=== PATIENT | female | born 1970 | race American Indian/Alaskan Native ===

== ENCOUNTER 2016-12-23 10:02 | Emergency (ER) | payer OTHER ==
[2016-12-23 10:34] VITALS: BP 146/86
--- NOTE | 2016-12-23 12:52 | Emergency Department Report ---
ED N/V/D HPI - General Chief complaint: Upper Respiratory Infection Stated complaint: HEADACHE/COUGH Time Seen by Provider: 12/23/16 12:47 Source: patient Mode of arrival: Ambulatory Limitations: No Limitations - History of Present Illness Initial comments: Patient here reports cough, chills, headache, nausea and vomiting and diarrhea, body aches and sore throat. She said that nausea vomiting and diarrhea started this yesterday and she vomited 20 times yesterday. She reports she had one diarrhea stool today. No Vomiting today. Headache is 3 out of 10. She reports nasal congestion. She also reports that she's been having body ache and sore throat which is 4 out of 10. Denies any difficulty breathing or chest pain. Denies any drooling or close enough throat. Denies any abdominal pain. Denies any back pain. She said she felt like she had a temperature but she did not actually take her temperature. She reported taking [id number]-[id number] guaifenesin without any relief. MD complaint: nausea, vomiting, diarrhea, other (upper respiratory symptoms) Onset/Timin -: days(s) Description of Vomiting: bilious Description of Diarrhea: water Associated Abdominal Pain: No Pain Scale: 3 (sore throat and body ache) Quality: aching Improves with: medication Worsens with: eating Context: sick contacts Associated Symptoms: myalgias, cough, fever/chills, headaches, loss of appetite , nausea/vomiting. denies: chest pain, diaphoresis, malaise, rash, dysuria, shortness of breath, syncope, weakness - Related Data Previous Rx's Medication Instructions Recorded Last Taken Type Carvedilol [Coreg] 12.5 mg PO BID #60 tablet 07/21/15 Unknown Rx HYDROcodone/APAP 10-325 [[place] 1 each PO Q4H PRN #30 tablet 07/21/15 Unknown Rx 10-325 mg TAB] Lisinopril [Zestril TAB] 20 mg PO QDAY #30 tablet 07/21/15 Unknown Rx amLODIPine [Norvasc] 10 mg PO QDAY #30 tablet 07/21/15 Unknown Rx metFORMIN [Glucophage] 500 mg PO BIDDIAB #60 tablet 07/21/15 Unknown Rx Acetaminophen/Codeine [Tylenol #3] 1 tab PO Q6H PRN #20 tab 11/06/15 Unknown Rx Ibuprofen [Motrin 600 MG tab] 600 mg PO Q8H PRN #30 tablet 08/10/15 Unknown Rx Penicillin Vk [Veetids TAB] 500 mg PO QID #28 tablet 08/10/15 Unknown Rx Cetirizine HCl [ZyrTEC] 10 mg PO QDAY #14 capsule 12/23/16 Unknown Rx Fluticasone [Flonase] 1 spray NS QDAY #1 bottle 12/23/16 Unknown Rx Nitrofurantoin Stone/M-Cryst 100 mg PO Q12HR #14 capsule 12/23/16 Unknown Rx [Macrobid CAP] Promethazine [Phenergan TAB] 25 mg PO Q8HR PRN #12 tab 12/23/16 Unknown Rx Allergies Allergy/AdvReac Type Severity Reaction Status Date / Time No Known Allergies Allergy Verified 07/20/15 00:26 ED Review of Systems ROS: Stated complaint: HEADACHE/COUGH Other details as noted in HPI Comment: All other systems reviewed and negative Constitutional: chills, weakness. denies: fever Eyes: denies: eye pain ENT: throat pain, congestion. denies: ear pain Respiratory: cough. denies: shortness of breath, SOB with exertion, SOB at rest , stridor, wheezing Cardiovascular: denies: chest pain, palpitations, edema, syncope Gastrointestinal: nausea, vomiting, diarrhea. denies: abdominal pain, constipation, hematemesis, melena, hematochezia Musculoskeletal: myalgia. denies: back pain, joint swelling, arthralgia Skin: denies: rash Neurological: headache, weakness. denies: numbness, paresthesias, confusion, abnormal gait, vertigo ED Past Medical Hx - Past Medical History Previous Medical History?: Yes Hx Hypertension: Yes Hx Diabetes: Yes - Surgical History Past Surgical History?: Yes Additional Surgical History: breast reduction - Family History Family history: hypertension - Social History Smoking Status: Current Every Day Smoker Substance Use Type: None - Medications Home Medications: Home Medications Medication Instructions Recorded Confirmed Last Taken Type Carvedilol [Coreg] 12.5 mg PO BID #60 tablet 07/21/15 Unknown Rx HYDROcodone/APAP 10-325 [[place] 1 each PO Q4H PRN #30 tablet 07/21/15 Unknown Rx 10-325 mg TAB] Lisinopril [Zestril TAB] 20 mg PO QDAY #30 tablet 07/21/15 Unknown Rx amLODIPine [Norvasc] 10 mg PO QDAY #30 tablet 07/21/15 Unknown Rx metFORMIN [Glucophage] 500 mg PO BIDDIAB #60 tablet 07/21/15 Unknown Rx Acetaminophen/Codeine [Tylenol #3] 1 tab PO Q6H PRN #20 tab 08/10/15 Unknown Rx Ibuprofen [Motrin 600 MG tab] 600 mg PO Q8H PRN #30 tablet 08/10/15 Unknown Rx Penicillin Vk [Veetids TAB] 500 mg PO QID #28 tablet 08/10/15 Unknown Rx Cetirizine HCl [ZyrTEC] 10 mg PO QDAY #14 capsule 12/23/16 Unknown Rx Fluticasone [Flonase] 1 spray NS QDAY #1 bottle 12/23/16 Unknown Rx Nitrofurantoin Stone/M-Cryst 100 mg PO Q12HR #14 capsule 12/23/16 Unknown Rx [Macrobid CAP] Promethazine [Phenergan TAB] 25 mg PO Q8HR PRN #12 tab 12/23/16 Unknown Rx ED Physical Exam - General Limitations: No Limitations General appearance: alert, in no apparent distress - Head Head exam: Present: atraumatic, normocephalic, normal inspection - Eye Eye exam: Present: normal appearance, PERRL, EOMI. Absent: periorbital swelling , periorbital tenderness Pupils: Present: normal accommodation - ENT ENT exam: Present: normal exam, normal orophraynx, mucous membranes moist, TM's normal bilaterally (Frantz TM congested without erythema.), normal external ear exam, other (Frantz nasal mucos congesta without erythema. Frantz Max and Frontal sinuses NTTP) - Neck Neck exam: Present: normal inspection, full ROM. Absent: tenderness, meningismus, lymphadenopathy - Respiratory Respiratory exam: Present: normal lung sounds bilaterally. Absent: respiratory distress, wheezes, rales, rhonchi, stridor, chest wall tenderness, accessory muscle use, decreased breath sounds, prolonged expiratory - Cardiovascular Cardiovascular Exam: Present: regular rate, normal rhythm, normal heart sounds - GI/Abdominal GI/Abdominal exam: Present: soft, normal bowel sounds. Absent: distended, tenderness, guarding, rebound, rigid - Extremities Exam Extremities exam: Present: normal inspection, full ROM, normal capillary refill. Absent: tenderness, pedal edema, joint swelling, calf tenderness - Back Exam Back exam: Present: normal inspection, full ROM. Absent: tenderness, CVA tenderness (R), CVA tenderness (L), muscle spasm, paraspinal tenderness, vertebral tenderness, rash noted - Neurological Exam Neurological exam: Present: alert, oriented X3, normal gait, reflexes normal. Absent: motor sensory deficit - Psychiatric Psychiatric exam: Present: normal affect, normal mood - Skin Skin exam: Present: warm, dry, intact, normal color. Absent: rash ED Course Vital Signs 12/23/16 10:30 Temperature 98.3 F Pulse Rate 92 H Respiratory 20 Rate Blood Pressure 146/86 O2 Sat by Pulse 100 Oximetry - Reevaluation(s) Reevaluation #1: 12/23/16 14:49 Patient was orally challenged in emergency room and tolerated 1 L of apple juice which is 4 250 cc cups of apple juice. She has no episode of vomiting or diarrhea in emergency room. She was given Zofran 8 mg ODT. ED Medical Decision Making - Lab Data Result diagrams: 12/23/16 13:06 12/23/16 13:06 Lab Results 12/23/16 12/23/16 12/23/16 Range/Units 12:55 13:06 13:06 WBC 4.2 L (4.5-11.0) K/mm3 RBC 4.70 (3.65-5.03) M/mm3 Hgb 11.6 (10.1-14.3) gm/dl Hct 36.5 (30.3-42.9) % MCV 78 L (79-97) fl MCH 25 L (28-32) pg MCHC 32 (30-34) % RDW 19.1 H (13.2-15.2) % Plt Count 215 (140-440) K/mm3 Lymph % (Auto) 45.5 H (13.4-35.0) % Stone % (Auto) 10.1 H (0.0-7.3) % Eos % (Auto) 1.0 (0.0-4.3) % Baso % (Auto) 0.5 (0.0-1.8) % Lymph # 1.9 (1.2-5.4) K/mm3 Stone # 0.4 (0.0-0.8) K/mm3 Eos # 0.0 (0.0-0.4) K/mm3 Baso # 0.0 (0.0-0.1) K/mm3 Seg Neutrophils % 42.9 (40.0-70.0) % Seg Neutrophils # 1.8 (1.8-7.7) K/mm3 Sodium 135 L (137-145) mmol/L Potassium 3.9 (3.6-5.0) mmol/L Chloride 96.2 L (98-107) mmol/L Carbon Dioxide 27 (22-30) mmol/L Anion Gap 16 mmol/L BUN 13 (7-17) mg/dL Creatinine 0.9 (0.7-1.2) mg/dL Estimated GFR > 60 ml/min BUN/Creatinine Ratio 14.44 % Glucose 120 H (65-100) mg/dL Calcium 8.9 (8.4-10.2) mg/dL Total Bilirubin 0.2 (0.1-1.2) mg/dL Direct Bilirubin < 0.2 (0-0.2) mg/dL Indirect Bilirubin 0.0 mg/dL AST 23 (5-40) units/L ALT 18 (7-56) units/L Alkaline Phosphatase 74 (35-129) units/L Total Protein 8.5 H (6.3-8.2) g/dL Albumin 4.0 (3.9-5) g/dL Albumin/Globulin Ratio 0.9 % Lipase 26 (13-60) units/L HCG, Qual (Negative) Urine Color [place] (Yellow) Urine Turbidity Cloudy (Clear) Urine pH 5.0 (5.0-7.0) Ur Specific [place] 1.030 (1.003-1.030) Urine Protein 30 mg/dl (Negative) mg/dL Urine Glucose (UA) Neg (Negative) mg/dL Urine Ketones Tr (Negative) mg/dL Urine Blood Neg (Negative) Urine Nitrite Neg (Negative) Urine Bilirubin Neg (Negative) Urine Urobilinogen < 2.0 (<2.0) mg/dL Ur Leukocyte Esterase Lg (Negative) Urine WBC (Auto) 10.0 H (0.0-6.0) /HPF Urine RBC (Auto) 10.0 (0.0-6.0) /HPF U Epithel Cells (Auto) 2.0 (0-13.0) /HPF Urine Bacteria (Auto) 1+ (Negative) /HPF Hyaline Casts 7 /LPF Urine Mucus 2+ /HPF / Range/Units 13:06 WBC (4.5-11.0) K/mm3 RBC (3.65-5.03) M/mm3 Hgb (10.1-14.3) gm/dl Hct (30.3-42.9) % MCV (79-97) fl MCH (28-32) pg MCHC (30-34) % RDW (13.2-15.2) % Plt Count (140-440) K/mm3 Lymph % (Auto) (13.4-35.0) % Stone % (Auto) (0.0-7.3) % Eos % (Auto) (0.0-4.3) % Baso % (Auto) (0.0-1.8) % Lymph # (1.2-5.4) K/mm3 Stone # (0.0-0.8) K/mm3 Eos # (0.0-0.4) K/mm3 Baso # (0.0-0.1) K/mm3 Seg Neutrophils % (40.0-70.0) % Seg Neutrophils # (1.8-7.7) K/mm3 Sodium (137-145) mmol/L Potassium (3.6-5.0) mmol/L Chloride (98-107) mmol/L Carbon Dioxide (22-30) mmol/L Anion Gap mmol/L BUN (7-17) mg/dL Creatinine (0.7-1.2) mg/dL Estimated GFR ml/min BUN/Creatinine Ratio % Glucose (65-100) mg/dL Calcium (8.4-10.2) mg/dL Total Bilirubin (0.1-1.2) mg/dL Direct Bilirubin (0-0.2) mg/dL Indirect Bilirubin mg/dL AST (5-40) units/L ALT (7-56) units/L Alkaline Phosphatase (35-129) units/L Total Protein (6.3-8.2) g/dL Albumin (3.9-5) g/dL Albumin/Globulin Ratio % Lipase (13-60) units/L HCG, Qual Negative (Negative) Urine Color (Yellow) Urine Turbidity (Clear) Urine pH (5.0-7.0) Ur Specific [place] (1.003-1.030) Urine Protein (Negative) mg/dL Urine Glucose (UA) (Negative) mg/dL Urine Ketones (Negative) mg/dL Urine Blood (Negative) Urine Nitrite (Negative) Urine Bilirubin (Negative) Urine Urobilinogen (<2.0) mg/dL Ur Leukocyte Esterase (Negative) Urine WBC (Auto) (0.0-6.0) /HPF Urine RBC (Auto) (0.0-6.0) /HPF U Epithel Cells (Auto) (0-13.0) /HPF Urine Bacteria (Auto) (Negative) /HPF Hyaline Casts /LPF Urine Mucus /HPF - Medical Decision Making ED course: Patient here for nausea vomiting diarrhea with upper respiratory symptoms. Blood work reveals patient with elevated lymph and normal wbc. Patient with UTI and mild dehydration. I explained to patient that she has Viral infection along with UTI which is bacterial. She was given Zofran 8 mg ODT in ED and tolerated oral fluids well. She voiced understanding of discharge instructions and diagnosis. Discharge home on Phenergan,Zyrtec, flonase and macrobid. Critical care attestation.: If time is entered above; I have spent that time in minutes in the direct care of this critically ill patient, excluding procedure time. ED Disposition Clinical Impression: Nausea vomiting and diarrhea, Viral upper respiratory tract infection with cough, Acute cystitis without hematuria Acute pharyngitis Qualifiers: Pharyngitis/tonsillitis etiology: unspecified etiology Qualified Code(s): J02.9 - Acute pharyngitis, unspecified Disposition: DISCHARGED TO HOME OR SELFCARE Is pt being admited?: No Does the pt Need Aspirin: No Condition: Stable Instructions: Urinary Tract Infection in Women (ED), Gastroenteritis (ED), Acute Nausea and Vomiting (ED), Acute Diarrhea (ED), Viral Syndrome (ED) Additional Instructions: Please drink at least 2 to 3 liters of water per day If symptoms return and you cannot tolerate fluids return to ER Take antibiotics for UTI Rest for 72 hours. Phenergan causes drowsiness so please do not drive or operate [place] while on phenergan Prescriptions: Cetirizine HCl [ZyrTEC] 10 mg PO QDAY #14 capsule Fluticasone [Flonase] 1 spray NS QDAY #1 bottle Nitrofurantoin Stone/M-Cryst [Macrobid CAP] 100 mg PO Q12HR #14 capsule Promethazine [Phenergan TAB] 25 mg PO Q8HR PRN #12 tab PRN Reason: Nausea Referrals: KRISTINA DUMONT MD [Primary Care Provider] - 12/24/16 Forms: Accompanied Note, Work/School Release Form(ED)
[2016-12-23] MEDS ORDERED: ZOFRAN ODT PO ONE (12:53)
[2016-12-23 13:32] LABS: Bacteria,Urine 1+ /HPF (Negative); Bilirubin,Urine NEG (Negative); Blood,Urine NEG (Negative); Ketones,Urine TR mg/dL (Negative); Leukocyte Esterase,Urine LG (Negative); Mucus,Urine 2+ /HPF; Nitrite,Urine NEG (Negative); Urobilinogen,Urine < 2.0 mg/dL (<2.0)
[2016-12-23 13:37] LABS: Basophils % (Auto) 0.5 % (0.0-1.8); Hematocrit 36.5 % (30.3-42.9); Hemoglobin 11.6 gm/dl (10.1-14.3); Mean Corpuscular HGB Conc 32 % (30-34); Mean Corpuscular Volume 78 fl (79-97); Platelet Count 215 K/mm3 (140-440); Red Cell Distribution Width 19.1 % (13.2-15.2); White Blood Count 4.2 K/mm3 (4.5-11.0)
[2016-12-23 13:45] LABS: Mean Corpuscular Hemoglobin 25 pg (28-32)
[2016-12-23 13:55] LABS: Alanine Aminotransferase 18 units/L (7-56); Albumin/Globulin Ratio 0.9 %; Alkaline Phosphatase 74 units/L (35-129); Anion Gap 16 mmol/L; BUN/Creatinine Ratio 14.44; Bilirubin,Total 0.2 mg/dL (0.1-1.2); Blood Urea Nitrogen 13 mg/dL (7-17); Calcium 8.9 mg/dL (8.4-10.2); Carbon Dioxide 27 mmol/L (22-30); Chloride 96.2 mmol/L (98-107); Glucose 120 mg/dL (65-100); Lipase 26 units/L (13-60); Potassium 3.9 mmol/L (3.6-5.0); Sodium 135 mmol/L (137-145); Total Protein 8.5 g/dL (6.3-8.2)
[2016-12-23 14:08] LABS: Bilirubin,Direct < 0.2 mg/dL (0-0.2)
== END 2016-12-23 15:09 | disposition home or self-care (01) ==
LOC: ED 10:02
DX: J06.9 Acute upper respiratory infection, unspecified (principal); N30.00 Acute cystitis without hematuria; J02.9 Acute pharyngitis, unspecified; R11.2 Nausea with vomiting, unspecified; R19.7 Diarrhea, unspecified; I10 Essential (primary) hypertension; E11.9 Type 2 diabetes mellitus without complications; F17.200 Nicotine dependence, unspecified, uncomplicated
CPT/HCPCS: 36415; 80048; 80074; 81001; 83690; 84703; 85025; 99283; Q0162

== ENCOUNTER 2017-01-19 00:01 | Emergency (ER) | payer OTHER ==
[2017-01-19 03:21] LABS: Basophils % (Auto) 0.6 % (0.0-1.8); Eosinophils % (Auto) 2.2 % (0.0-4.3); Hematocrit 32.4 % (30.3-42.9); Hemoglobin 10.2 gm/dl (10.1-14.3); Mean Corpuscular HGB Conc 32 % (30-34); Mean Corpuscular Volume 81 fl (79-97); Platelet Count 291 K/mm3 (140-440); Red Blood Count 4.01 M/mm3 (3.65-5.03); White Blood Count 10.5 K/mm3 (4.5-11.0)
[2017-01-19 03:30] LABS: Mean Corpuscular Hemoglobin 25 pg (28-32)
[2017-01-19 03:42] LABS: Alanine Aminotransferase 11 units/L (7-56); Albumin 3.7 g/dL (3.9-5); Albumin/Globulin Ratio 0.9 %; Alkaline Phosphatase 69 units/L (35-129); Anion Gap 19 mmol/L; Bilirubin,Total < 0.2 mg/dL (0.1-1.2); Blood Urea Nitrogen 11 mg/dL (7-17); Calcium 8.6 mg/dL (8.4-10.2); Carbon Dioxide 23 mmol/L (22-30); Chloride 100.4 mmol/L (98-107); Glucose 108 mg/dL (65-100); Lipase 16 units/L (13-60); Potassium 3.8 mmol/L (3.6-5.0); Sodium 139 mmol/L (137-145); Total Protein 7.6 g/dL (6.3-8.2)
[2017-01-19 05:44] LABS: Bacteria,Urine 3+ /HPF (Negative); Bilirubin,Urine NEG (Negative); Blood,Urine SM (Negative); Ketones,Urine NEG (Negative); Leukocyte Esterase,Urine LG (Negative); Mucus,Urine FEW /HPF; Nitrite,Urine NEG (Negative); Protein,Urine <15 mg/dL mg/dL (Negative); Urobilinogen,Urine < 2.0 mg/dL (<2.0)
[2017-01-19] MEDS ORDERED: NACL ONE ×2 (06:12→07:39)
--- NOTE | 2017-01-19 06:13 | Emergency Department Report ---
ED Abdominal Pain HPI - General Chief Complaint: Abdominal Pain Stated Complaint: RT SIDE PAIN Time Seen by Provider: 01/19/17 06:01 Source: patient Mode of arrival: Ambulatory Limitations: No Limitations - History of Present Illness Initial Comments: 46-year-old female presents to the emergency department complaining of right flank pain. Patient reports the onset of sharp, intermittent right flank pain for the past 3 days. Pain does not radiate. She reports associated nausea and vomiting. Pain lasts for approximately 5 minutes before spontaneously resolving. Patient denies fever. There has been no diarrhea, dysuria, or hematuria. There are no other complaints. MD Complaint: flank pain -: Gradual, days(s) (3) Location: R flank Radiation: none Migration to: no migration Severity: severe Severity scale (0 -10): 10 Quality: sharp Consistency: intermittent, now resolved Improves With: nothing Worsens With: nothing Associated Symptoms: nausea, vomiting - Related Data Previous Rx's Medication Instructions Recorded Last Taken Type HYDROcodone/APAP 5-325 [[place] 1 each PO Q6HR PRN #20 tablet 01/19/17 Unknown Rx 5/325] Nitrofurantoin [place]/M-Cryst 100 mg PO Q12HR #14 capsule 01/19/17 Unknown Rx [Macrobid CAP] Allergies Allergy/AdvReac Type Severity Reaction Status Date / Time No Known Allergies Allergy Verified 07/20/15 00:26 ED Review of Systems ROS: Stated complaint: RT SIDE PAIN Other details as noted in HPI Comment: All other systems reviewed and negative Gastrointestinal: as per HPI (right flank pain), nausea, vomiting ED Past Medical Hx - Past Medical History Previous Medical History?: Yes Hx Hypertension: Yes Hx Diabetes: Yes - Surgical History Past Surgical History?: Yes Additional Surgical History: breast reduction - Family History Family history: no significant - Social History Smoking Status: Never Smoker Substance Use Type: None - Medications Home Medications: Home Medications Medication Instructions Recorded Confirmed Last Taken Type HYDROcodone/APAP 5-325 [[place] 1 each PO Q6HR PRN #20 tablet 01/19/17 Unknown Rx 5/325] Nitrofurantoin [place]/M-Cryst 100 mg PO Q12HR #14 capsule 01/19/17 Unknown Rx [Macrobid CAP] ED Physical Exam - General Limitations: No Limitations General appearance: alert, in no apparent distress - Head Head exam: Present: atraumatic, normocephalic - Eye Eye exam: Present: normal appearance, PERRL, EOMI - ENT ENT exam: Present: normal exam, normal orophraynx, mucous membranes moist - Neck Neck exam: Present: normal inspection, full ROM. Absent: tenderness - Respiratory Respiratory exam: Present: normal lung sounds bilaterally. Absent: respiratory distress - Cardiovascular Cardiovascular Exam: Present: regular rate, normal rhythm, normal heart sounds - GI/Abdominal GI/Abdominal exam: Present: soft, normal bowel sounds. Absent: distended, tenderness - Extremities Exam Extremities exam: Present: normal inspection, full ROM. Absent: tenderness - Back Exam Back exam: Present: normal inspection, full ROM. Absent: tenderness - Neurological Exam Neurological exam: Present: alert, oriented X3. Absent: motor sensory deficit - Skin Skin exam: Present: warm, dry, intact ED Course Vital Signs 01/19/17 01/19/17 01/19/17 02:28 05:26 08:59 Temperature 98.1 F 97.0 F L Pulse Rate 97 H 70 Respiratory 20 18 17 Rate Blood Pressure 175/94 Blood Pressure 191/88 [Left] O2 Sat by Pulse 98 100 100 Oximetry ED Medical Decision Making - Lab Data Result diagrams: 01/19/17 03:03 01/19/17 03:03 - Radiology Data Radiology results: report reviewed, image reviewed CT of the abdomen and pelvis with IV contrast reveals no acute abnormality. - Medical Decision Making Lab and imaging results reviewed and discussed with the patient. Patient will be discharged home at this time on oral antibiotic and pain medication to follow up with her primary care physician. - Differential Diagnosis muscle spasm, kidney stone, pyelonephritis Critical care attestation.: If time is entered above; I have spent that time in minutes in the direct care of this critically ill patient, excluding procedure time. ED Disposition Clinical Impression: Right flank pain UTI (urinary tract infection) Qualifiers: Urinary tract infection type: acute cystitis Hematuria presence: without hematuria Qualified Code(s): N30.00 - Acute cystitis without hematuria Disposition: DISCHARGED TO HOME OR SELFCARE Is pt being admited?: No Condition: Stable Instructions: Abdominal Pain (ED), Urinary Tract Infection in Women (ED) Prescriptions: HYDROcodone/APAP 5-325 [[place] 5/325] 1 each PO Q6HR PRN #20 tablet PRN Reason: Pain Nitrofurantoin [place]/M-Cryst [Macrobid CAP] 100 mg PO Q12HR #14 capsule Referrals: PRIMARY CARE, [Primary Care Provider] - 3-5 Days Time of Disposition: 09:16
--- NOTE | 2017-01-19 08:33 | Cat Scan Report ---
CT SCAN OF THE ABDOMEN AND PELVIS WITH CONTRAST: HISTORY: Right flank pain. TECHNIQUE: Helical CT in 1.25mm intervals following IV contrast. Sagittal and coronal reconstructions. FINDINGS: The liver is normal in size and is without focal defect. No gallstones or biliary dilatation are noted. The spleen and pancreas demonstrate a normal size and attenuation with no evidence of abnormal mass. The kidneys are normal in size and position with no evidence of hydronephrosis or mass. The adrenal glands are normal. There is no intestinal obstruction or ascites. Normal appendix. The abdominal aorta is normal. The uterus and adnexa are within normal limits. There is no evidence of peritoneal air or fluid. There is no evidence of any abnormal masses or fluid collections within the pelvis. No adenopathy is identified. The bladder is normal. IMPRESSION: Unremarkable CT scan of the abdomen and pelvis with contrast. No acute process is noted.
[2017-01-19 09:43] VITALS: BP 190/78
== END 2017-01-19 09:43 | disposition home or self-care (01) ==
LOC: ED 00:01
DX: N30.00 Acute cystitis without hematuria (principal); R10.9 Unspecified abdominal pain; I10 Essential (primary) hypertension; E11.9 Type 2 diabetes mellitus without complications
CPT/HCPCS: 36415; 74177; 80053; 81001; 81025; 83690; 85025; 99284; Q9967

== ENCOUNTER 2019-01-10 08:20 | Observation (INO) | payer SELFPAY ==
--- NOTE | 2019-01-10 08:48 | Emergency Department Report ---
HPI - General Chief Complaint: Chest Pain Time Seen by Provider: 01/10/19 08:32 - HPI HPI: 48-year-old -[place] female presents to the emergency department with complaint of a one-week history of a productive cough, some generalized chest discomfort, shortness of breath. Patient says that the symptoms worsen when she is laying flat. She tried some tussin DM for her symptoms without any relief. She has a past medical history of hypertension and aal-yhuqztz-onwquikhm diabetes but she does not follow up with any primary care physician and is not on any medications for these conditions. No recent travel or sick contacts at home. She denies any fever, nausea, vomiting, diaphoresis, back pain, lower extremity swelling. She is a tobacco smoker but denies any illicit drug use. ED Past Medical Hx - Past Medical History Previous Medical History?: Yes Hx Hypertension: Yes Hx Diabetes: Yes - Surgical History Past Surgical History?: Yes Additional Surgical History: breast reduction - Social History Smoking Status: Current Every Day Smoker Substance Use Type: Alcohol - Medications Home Medications: Home Medications Medication Instructions Recorded Confirmed Last Taken Type No Known Home Medications [No 01/10/19 01/10/19 Unknown History Reported Home Medications] ED Review of Systems ROS: Stated complaint: CHEST PAIN/SORE THROAT/HEADACHE Other details as noted in HPI Comment: All other systems reviewed and negative Constitutional: denies: chills, fever Eyes: denies: eye pain, vision change ENT: denies: ear pain, throat pain Respiratory: cough, shortness of breath Cardiovascular: chest pain. denies: palpitations, edema Gastrointestinal: denies: abdominal pain, vomiting Genitourinary: denies: dysuria, discharge Musculoskeletal: denies: back pain, arthralgia Skin: denies: rash, lesions Neurological: denies: weakness, numbness Physical Exam - Physical Exam Vital Signs: Vital Signs 01/10/19 08:24 Temperature 98.3 F Pulse Rate 102 H Respiratory 18 Rate Blood Pressure 221/102 O2 Sat by Pulse 99 Oximetry Physical Exam: GENERAL: The patient is well-developed well-nourished. HEENT: Normocephalic. Atraumatic. Patient has moist mucous membranes. EYES: Extraocular motions are intact. Pupils are equal and reactive to light bilaterally. NECK: Supple. Trachea is midline. CHEST/LUNGS: Clear to auscultation. There is no respiratory distress noted. HEART/CARDIOVASCULAR: Regular. There is no tachycardia. There is no obvious murmur. ABDOMEN: Abdomen is soft, nontender. Patient has normal bowel sounds. There is no abdominal distention. SKIN: Skin is warm and dry. NEURO: The patient is awake, alert, and oriented. The patient is cooperative. The patient has no focal neurologic deficits. The patient has normal speech. MUSCULOSKELETAL: There is no tenderness or deformity. There is no evidence of acute injury. ED Course Vital Signs 01/10/19 08:24 Temperature 98.3 F Pulse Rate 102 H Respiratory 18 Rate Blood Pressure 221/102 O2 Sat by Pulse 99 Oximetry ED Medical Decision Making - Lab Data Result diagrams: 01/10/19 08:45 01/10/19 08:47 - EKG Data -: EKG Interpreted by Me EKG shows normal: sinus rhythm, axis, intervals, QRS complexes, ST-T waves (nonspecific T waves) Rate: normal - EKG Data When compared to previous EKG there are: previous EKG unavailable Interpretation: other (nonspecific T waves, No STEMI) - Radiology Data Radiology results: image reviewed interpreted by me: Chest x-ray does not show any pneumothorax, pleural effusion, pneumonia or obvious focal consolidation. - Medical Decision Making This patient presents to the emergency department with some midsternal nonradiating chest pain and a one-week history of a productive cough. Her chest pain may have some level of testicle enteritis from her incessant coughing. However she has multiple risk factors for coronary artery disease and presents with hypertensive urgency. EKG did not show any signs of ST elevation [place], ischemia or dysrhythmia. First troponin and d-dimer negative. The patient will be admitted to the hospital for further evaluation and treatment and was subsequently seen by the hospitalist. Critical Care Time: No Critical care attestation.: If time is entered above; I have spent that time in minutes in the direct care of this critically ill patient, excluding procedure time. ED Disposition Clinical Impression: Hypertensive urgency, Acute chest pain Disposition: OP ADMIT IP TO THIS HOSP Is pt being admited?: Yes Condition: Fair Heart Score - HEART Score History: Slightly suspicious EKG: Non-specific Age: 45-65 Risk factors: > 3 risk factors or hx of atherosclerotic disease Troponin: < normal limit HEART Score: 4 - Critical Actions Critical Actions: 4-6 pts:12-16.6% risk of adverse cardiac event. Should be admitted
[2019-01-10 08:53] LABS: Basophils % (Auto) 0.4 % (0.0-1.8); Eosinophils # (Auto) 0.1 K/mm3 (0.0-0.4); Eosinophils % (Auto) 2.6 % (0.0-4.3); Hematocrit 37.6 % (30.3-42.9); Hemoglobin 12.8 gm/dl (10.1-14.3); Lymphocytes # (Auto) 1.7 K/mm3 (1.2-5.4); Lymphocytes % (Auto) 32.1 % (13.4-35.0); Mean Corpuscular HGB Conc 34 % (30-34); Mean Corpuscular Volume 91 fl (79-97); Monocytes # (Auto) 0.4 K/mm3 (0.0-0.8); Monocytes % (Auto) 7.9 % (0.0-7.3); Platelet Count 192 K/mm3 (140-440); Red Blood Count 4.12 M/mm3 (3.65-5.03); Red Cell Distribution Width 14.7 % (13.2-15.2)
[2019-01-10] MEDS ORDERED: NORMODYNE IV ONE (08:59)
--- NOTE | 2019-01-10 09:01 | XRay Report ---
ROUTINE CHEST, TWO VIEWS: Chest pain. PA and lateral views demonstrate the heart and mediastinal contour to be of normal size and shape. The lungs are clear and fully expanded and the soft tissues and bony structures are normal. IMPRESSION: Normal study.
[2019-01-10 09:14] LABS: BUN/Creatinine Ratio 15; Blood Urea Nitrogen 9 mg/dL (7-17); Calcium 8.2 mg/dL (8.4-10.2); Hemolysis Index 1
[2019-01-10] MEDS ORDERED: ASPIRIN PO ONE (10:09)
[2019-01-10] MEDS ORDERED: TESSALON PERLES PO ONE (10:09)
[2019-01-10] MEDS ORDERED: NACL 0.9% 1000 ML 0 ML ONE (11:22)
[2019-01-10] MEDS ORDERED: SODIUM CHLORIDE FLUSH SYRINGE 10 ML IV PRN ×2 (13:23)
[2019-01-10] MEDS ORDERED: TYLENOL PO PRN (13:23)
[2019-01-10] MEDS ORDERED: ZOFRAN IV PRN (13:23)
[2019-01-10] MEDS ORDERED: MORPHINE IV PRN (13:23)
[2019-01-10] MEDS ORDERED: D50W (25GM) Syringe IV PRN (13:23)
[2019-01-10] MEDS ORDERED: APRESOLINE IV PRN (13:29)
--- NOTE | 2019-01-10 13:33 | History and Physical Report ---
History of Present Illness Date of admission: 01/10/19 12:49 Chief complaint: Cough History of present illness: 48-year-old woman who presents with cough 1 week. The cough is associated with chest pain, she has cough that is worse at night, it is worse with laying down. She denies sputum production. -The patient denies orthopnea, PND or MICHEL Denies fever - Past medical history; hypertension and diabetes, tobacco abuse Surgical history; status post breast reduction Family history significant for ID in father who of ID at age 62, mother of stroke at age 55 Social history smokes 1 pack daily, Current every day smoker, alcohol on occasion, denies illicit drug use Medications and Allergies Allergies Allergy/AdvReac Type Severity Reaction Status Date / Time No Known Allergies Allergy Verified 07/20/15 00:26 Home Medications Medication Instructions Recorded Confirmed Last Taken Type No Known Home Medications [No 01/10/19 01/10/19 Unknown History Reported Home Medications] Review of Systems Constitutional: no fatigue Ears, nose, mouth and throat: no ear pain Breasts: no deferred Cardiovascular: chest pain Respiratory: cough Gastrointestinal: no abdominal pain Genitourinary Female: no dysuria Rectal: no pain Musculoskeletal: no neck stiffness Integumentary: no rash Neurological: no head injury Psychiatric: no anxiety Endocrine: no cold intolerance Hematologic/Lymphatic: no easy bruising Allergic/Immunologic: no urticaria Exam - Constitutional Vitals: Temp Pulse Resp BP Pulse Ox 98.6 F 77 16 142/85 98 01/10/19 10:25 01/10/19 12:30 01/10/19 12:30 01/10/19 12:30 01/10/19 12:30 General appearance: Present: no acute distress, well-nourished - EENT Eyes: Present: PERRL ENT: hearing intact, clear oral mucosa - Neck Neck: Present: supple, normal ROM - Respiratory Respiratory effort: normal Respiratory: bilateral: diminished, wheezing - Cardiovascular Heart Sounds: Present: S1 & S2. Absent: rub, click - Extremities Extremities: pulses symmetrical, No edema Peripheral Pulses: within normal limits - Abdominal General gastrointestinal: Present: soft, non-tender, non-distended, normal bowel sounds Female genitourinary: Present: normal - Integumentary Integumentary: Present: clear, warm, dry - Musculoskeletal Musculoskeletal: gait normal, strength equal bilaterally - Psychiatric Psychiatric: appropriate mood/affect, intact judgment & insight - Neurologic Neurologic: CNII-XII intact, moves all extremities Results - Labs CBC & Chem 7: 01/10/19 08:45 01/10/19 08:47 Labs: Laboratory Last Values WBC 5.3 K/mm3 (4.5-11.0) 01/10/19 08:45 RBC 4.12 M/mm3 (3.65-5.03) 01/10/19 08:45 Hgb 12.8 gm/dl (10.1-14.3) 01/10/19 08:45 Hct 37.6 % (30.3-42.9) 01/10/19 08:45 MCV 91 fl (79-97) 01/10/19 08:45 MCH 31 pg (28-32) 01/10/19 08:45 MCHC 34 % (30-34) 01/10/19 08:45 RDW 14.7 % (13.2-15.2) 01/10/19 08:45 Plt Count 192 K/mm3 (140-440) 01/10/19 08:45 Lymph % (Auto) 32.1 % (13.4-35.0) 01/10/19 08:45 [place] % (Auto) 7.9 % (0.0-7.3) H 01/10/19 08:45 Eos % (Auto) 2.6 % (0.0-4.3) 01/10/19 08:45 Baso % (Auto) 0.4 % (0.0-1.8) 01/10/19 08:45 Lymph # 1.7 K/mm3 (1.2-5.4) 01/10/19 08:45 [place] # 0.4 K/mm3 (0.0-0.8) 01/10/19 08:45 Eos # 0.1 K/mm3 (0.0-0.4) 01/10/19 08:45 Baso # 0.0 K/mm3 (0.0-0.1) 01/10/19 08:45 Seg Neutrophils % 57.0 % (40.0-70.0) 01/10/19 08:45 Seg Neutrophils # 3.0 K/mm3 (1.8-7.7) 01/10/19 08:45 D-Dimer < 135.00 ng/mlDDU (0-234) 01/10/19 08:47 Sodium 143 mmol/L (137-145) 01/10/19 08:47 Potassium 3.8 mmol/L (3.6-5.0) 01/10/19 08:47 Chloride 102.9 mmol/L (98-107) 01/10/19 08:47 Carbon Dioxide 28 mmol/L (22-30) 01/10/19 08:47 Anion Gap 16 mmol/L 01/10/19 08:47 BUN 9 mg/dL (7-17) 01/10/19 08:47 Creatinine 0.6 mg/dL (0.7-1.2) L 01/10/19 08:47 Estimated GFR > 60 ml/min 01/10/19 08:47 BUN/Creatinine Ratio 15 % 01/10/19 08:47 Glucose 153 mg/dL (65-100) H 01/10/19 08:47 Calcium 8.2 mg/dL (8.4-10.2) L 01/10/19 08:47 Troponin T < 0.010 ng/mL (0.00-0.029) 01/10/19 08:47 NT-Pro-B Natriuret Pep 117.0 pg/mL (0-450) 01/10/19 08:47 - Imaging and Cardiology Chest x-ray: image reviewed (no acute findings) Assessment and Plan Assessment and plan: 48-year-old woman who presented to the hospital complaining of one week of cough, chest discomfort and shortness of breath. PMH; hypertension, diabetes, current every day smoker Diagnoses Chest pain Acute bronchitis Hypertension Diabetes Plan cardiology consult for management of chest pain, likely atypical, EKG reviewed there are nonspecific ST abnormalities, but no evidence of an ID, chest x-ray negative, troponin negative 1 Optimize medications for blood pressure management Optimize insulins -Counseled greater than 10 minutes on tobacco cessation, nicotine patch is offered as is nondistended ankle area did this transfer is askeda DVT prophylaxis Lovenox
[2019-01-10] MEDS ORDERED: NORVASC PO SCH (14:00)
[2019-01-10] MEDS ORDERED: SOLU-Medrol ONE (14:15)
[2019-01-10] MEDS: SOLU-Medrol IV SCH ×2 (14:18→22:53)
[2019-01-10] MEDS: DUONEB *Not for PRN Use IH SCH ×3 (14:27→21:16)
[2019-01-10] MEDS ORDERED: DUONEB *Not for PRN Use IH ONE (14:27)
[2019-01-10 16:22] LABS: Hematocrit 37.7 % (30.3-42.9); Hemoglobin 12.4 gm/dl (10.1-14.3); Mean Corpuscular HGB Conc 33 % (30-34); Mean Corpuscular Volume 92 fl (79-97); Red Blood Count 4.08 M/mm3 (3.65-5.03)
[2019-01-10 16:23] LABS: Basophils % (Auto) 0.2 % (0.0-1.8); Eosinophils # (Auto) 0.1 K/mm3 (0.0-0.4); Eosinophils % (Auto) 1.3 % (0.0-4.3); Monocytes # (Auto) 0.3 K/mm3 (0.0-0.8); Monocytes % (Auto) 3.8 % (0.0-7.3); Platelet Count 191 K/mm3 (140-440)
[2019-01-10] MEDS: PROCARDIA XL PO SCH ×2 (16:40→22:53)
[2019-01-10 16:43] LABS: BUN/Creatinine Ratio 13; Blood Urea Nitrogen 9 mg/dL (7-17); Calcium 8.2 mg/dL (8.4-10.2); Hemolysis Index 1
[2019-01-10] MEDS: PULMICORT IH SCH (21:16)
[2019-01-10] MEDS: HumaLOG SUB-Q SCH (22:53)
[2019-01-10] MEDS: LOVENOX SUB-Q SCH (22:53)
[2019-01-10] MEDS: SODIUM CHLORIDE FLUSH SYRINGE 10 ML IV SCH (22:54)
[2019-01-11] MEDS: DUONEB *Not for PRN Use IH SCH ×3 (02:15→13:30)
[2019-01-11 02:17] LABS: Bilirubin,Urine NEG (Negative); Blood,Urine SM (Negative); Color,Urine Straw (Yellow); Protein,Urine <15 mg/dL mg/dL (Negative); Urobilinogen,Urine < 2.0 mg/dL (<2.0); WBC,Urine < 1.0 /HPF (0.0-6.0)
[2019-01-11] MEDS: HumaLOG SUB-Q SCH ×6 (07:30→22:50)
[2019-01-11] MEDS: PULMICORT IH SCH ×2 (08:12→20:33)
[2019-01-11] MEDS: SOLU-Medrol IV SCH ×2 (09:03→21:50)
[2019-01-11] MEDS: PROCARDIA XL PO SCH ×2 (09:05→21:50)
[2019-01-11] MEDS: SODIUM CHLORIDE FLUSH SYRINGE 10 ML IV SCH ×2 (09:06→21:50)
--- NOTE | 2019-01-11 10:45 | Progress Note ---
Assessment and Plan Assessment and plan: Assessment: 48 y.o Female admitted on 01/10 for treatment of Acute bronchitis. At the time of my examination pt is awake, alert and oriented X3. She continues to c/o of non-productive cough that is worst in the night. On auscultation faint scattered wheezing is audible in upper lobes. Acute Bronchitis Chest Pain Hypertension Diabetes Nicotine dependence abuse Plan: Continue Nebulizer treatments Continue to taper systemic steroids Cardiology consulted pending recommendation Continue antihypertensive medications and monitor BP Continue POC BG monitoring and SSI Continue to encourage smoking cessation Monitor potassium and replace prn History Interval history: 48 y.o female with history of DM, HTN, and tobacco abuse presented to ED with c/o chest pain, non productive cough x7 days which is worst in the night. She was admitted on 01/10/19 for treatment of Acute Bronchitis. Hospitalist Physical - Constitutional Vitals: Temp Pulse Resp BP Pulse Ox 97.9 F 119 H 22 133/63 95 01/11/19 04:20 01/11/19 09:26 01/11/19 09:26 01/11/19 09:08 01/11/19 04:21 General appearance: Present: no acute distress, well-nourished - EENT Eyes: Present: PERRL, EOM intact ENT: hearing intact - Neck Neck: Present: supple, normal ROM - Respiratory Respiratory effort: normal Respiratory: bilateral: wheezing (scattered faint wheezing to upper lobes) - Cardiovascular Rhythm: regular Heart Sounds: Present: S1 & S2 - Extremities Extremities: pulses intact, pulses symmetrical, No edema Peripheral Pulses: within normal limits - Abdominal General gastrointestinal: soft, non-tender - Integumentary Integumentary: Present: clear, warm, dry - Psychiatric Psychiatric: appropriate mood/affect, cooperative - Neurologic Neurologic: CNII-XII intact Results - Labs CBC & Chem 7: 01/10/19 15:39 01/10/19 15:39 Labs: Laboratory Last Values WBC 7.0 K/mm3 (4.5-11.0) 01/10/19 15:39 RBC 4.08 M/mm3 (3.65-5.03) 01/10/19 15:39 Hgb 12.4 gm/dl (10.1-14.3) 01/10/19 15:39 Hct 37.7 % (30.3-42.9) 01/10/19 15:39 MCV 92 fl (79-97) 01/10/19 15:39 MCH 30 pg (28-32) 01/10/19 15:39 MCHC 33 % (30-34) 01/10/19 15:39 RDW 15.0 % (13.2-15.2) 01/10/19 15:39 Plt Count 191 K/mm3 (140-440) 01/10/19 15:39 Lymph % (Auto) 28.0 % (13.4-35.0) 01/10/19 15:39 [place] % (Auto) 3.8 % (0.0-7.3) 01/10/19 15:39 Eos % (Auto) 1.3 % (0.0-4.3) 01/10/19 15:39 Baso % (Auto) 0.2 % (0.0-1.8) 01/10/19 15:39 Lymph # 2.0 K/mm3 (1.2-5.4) 01/10/19 15:39 [place] # 0.3 K/mm3 (0.0-0.8) 01/10/19 15:39 Eos # 0.1 K/mm3 (0.0-0.4) 01/10/19 15:39 Baso # 0.0 K/mm3 (0.0-0.1) 01/10/19 15:39 Seg Neutrophils % 66.7 % (40.0-70.0) 01/10/19 15:39 Seg Neutrophils # 4.7 K/mm3 (1.8-7.7) 01/10/19 15:39 D-Dimer < 135.00 ng/mlDDU (0-234) 01/10/19 08:47 Sodium 141 mmol/L (137-145) 01/10/19 15:39 Potassium 3.4 mmol/L (3.6-5.0) L 01/10/19 15:39 Chloride 101.1 mmol/L (98-107) 01/10/19 15:39 Carbon Dioxide 29 mmol/L (22-30) 01/10/19 15:39 Anion Gap 14 mmol/L 01/10/19 15:39 BUN 9 mg/dL (7-17) 01/10/19 15:39 Creatinine 0.7 mg/dL (0.7-1.2) 01/10/19 15:39 Estimated GFR > 60 ml/min 01/10/19 15:39 BUN/Creatinine Ratio 13 % 01/10/19 15:39 Glucose 186 mg/dL (65-100) H 01/10/19 15:39 POC Glucose 237 (70-105) H 01/11/19 08:03 Hemoglobin A1c 6.7 % (4-6) H 01/11/19 05:33 Calcium 8.2 mg/dL (8.4-10.2) L 01/10/19 15:39 Troponin T < 0.010 ng/mL (0.00-0.029) 01/10/19 20:10 NT-Pro-B Natriuret Pep 117.0 pg/mL (0-450) 01/10/19 08:47 Urine Color Straw (Yellow) 01/11/19 02:00 Urine Turbidity Clear (Clear) 01/11/19 02:00 Urine pH 8.0 (5.0-7.0) H 01/11/19 02:00 Ur Specific [place] 1.006 (1.003-1.030) 01/11/19 02:00 Urine Protein <15 mg/dl mg/dL (Negative) 01/11/19 02:00 Urine Glucose (UA) 50 mg/dL (Negative) 01/11/19 02:00 Urine Ketones Neg mg/dL (Negative) 01/11/19 02:00 Urine Blood Sm (Negative) 01/11/19 02:00 Urine Nitrite Neg (Negative) 01/11/19 02:00 Urine Bilirubin Neg (Negative) 01/11/19 02:00 Urine Urobilinogen < 2.0 mg/dL (<2.0) 01/11/19 02:00 Ur Leukocyte Esterase Neg (Negative) 01/11/19 02:00 Urine WBC (Auto) < 1.0 /HPF (0.0-6.0) 01/11/19 02:00 Urine RBC (Auto) 2.0 /HPF (0.0-6.0) 01/11/19 02:00 U Epithel Cells (Auto) 1.0 /HPF (0-13.0) 01/11/19 02:00 Active Medications - Current Medications Current Medications: Generic Name Dose Route Start Last Admin Trade Name Freq PRN Reason Stop Dose Admin Acetaminophen 650 mg 01/10/19 13:23 Tylenol PO Q4H PRN Pain MILD(1-3)/Fever >100.5/LOZANO Albuterol/Ipratropium 1 ampul 01/10/19 14:00 01/11/19 08:12 Duoneb *Not For Prn Use* IH 1 ampul Q6HRT LESLEE Administration Budesonide 0.5 mg 01/10/19 20:00 01/11/19 08:12 Pulmicort IH 0.5 mg Q12HRT LESLEE Administration Dextrose 50 ml 01/10/19 13:23 D50w (25gm) Syringe IV PRN PRN Hypoglycemia Enoxaparin Sodium 40 mg 01/10/19 22:00 01/10/19 22:53 Lovenox SUB-Q 40 mg QDAY@2200 LESLEE Administration Hydralazine HCl 10 mg 01/10/19 13:29 Apresoline IV Q4HR PRN BP >160/100 Insulin Human Lispro 0 unit 01/10/19 16:30 01/11/19 07:30 Humalog SUB-Q 3 unit ACHS LESLEE Administration Protocol Methylprednisolone Sodium Succinate 40 mg 01/10/19 14:00 01/11/19 09:03 Solu-Medrol IV 40 mg Q12HR LESLEE Administration Morphine Sulfate 2 mg 01/10/19 13:23 Morphine IV 01/11/19 13:22 Q4H PRN Pain, Moderate (4-6) Nicotine 7 mg 01/11/19 10:00 Habitrol TD QDAY LESLEE Nifedipine 60 mg 01/10/19 17:00 01/11/19 09:05 Procardia Xl PO 60 mg Q12HR LESLEE Administration Ondansetron HCl 4 mg 01/10/19 13:23 Zofran IV Q8H PRN Nausea And Vomiting Sodium Chloride 10 ml 01/10/19 22:00 01/11/19 09:06 Sodium Chloride Flush Syringe 10 Ml IV 10 ml BID LESLEE Administration Sodium Chloride 10 ml 01/10/19 13:23 Sodium Chloride Flush Syringe 10 Ml IV PRN PRN LINE FLUSH Sodium Chloride 10 ml 01/10/19 13:23 Sodium Chloride Flush Syringe 10 Ml IV PRN PRN LINE FLUSH
--- NOTE | 2019-01-11 11:16 | Consultation ---
History of Present Illness Consult date: 01/11/19 Consult reason: chest pain History of present illness: This is a 48 year old woman who presented with shortness of breath, chest pain and coughs admitted with acute bronchitis. On presentation, noted severely hypertensive with a systolic blood pressure of 221. A cardiac consultation was requested for evaluation of chest pain. Patient reports chest pain is followed by coughs. Pain is reproducible with palpation and deep inspirations. Her ECG is sinus rhythm with non-specific [place] abnormalities. Patient does not have a prior cardiac history. Patient gives a history of diabetes mellitus, hypertension who has not taken any medications in several years. Patient also reports she smokes cigarettes. Her latest cardiac evaluation was done in 2014. At that time she had a normal thallium stress thallium. Medications and Allergies Allergies Allergy/AdvReac Type Severity Reaction Status Date / Time No Known Allergies Allergy Verified 07/20/15 00:26 Home Medications Medication Instructions Recorded Confirmed Last Taken Type No Known Home Medications [No 01/10/19 01/10/19 Unknown History Reported Home Medications] Active Meds: Active Medications Acetaminophen (Tylenol) 650 mg PO Q4H PRN PRN Reason: Pain MILD(1-3)/Fever >100.5/LOZANO Albuterol/Ipratropium (Duoneb *Not For Prn Use*) 1 ampul IH Q6HRT [facility] Last Admin: 01/11/19 08:12 Dose: 1 ampul Documented by: Budesonide (Pulmicort) 0.5 mg IH Q12HRT [facility] Last Admin: 01/11/19 08:12 Dose: 0.5 mg Documented by: Dextrose (D50w (25gm) Syringe) 50 ml IV PRN PRN PRN Reason: Hypoglycemia Enoxaparin Sodium (Lovenox) 40 mg SUB-Q QDAY@2200 [facility] Last Admin: 01/10/19 22:53 Dose: 40 mg Documented by: Hydralazine HCl (Apresoline) 10 mg IV Q4HR PRN PRN Reason: BP >160/100 Insulin Human Lispro (Humalog) 0 unit SUB-Q [facility]; Protocol Last Admin: 01/11/19 07:30 Dose: 3 unit Documented by: Methylprednisolone Sodium Succinate (Solu-Medrol) 40 mg IV Q12HR [facility] Last Admin: 01/11/19 09:03 Dose: 40 mg Documented by: Morphine Sulfate (Morphine) 2 mg IV Q4H PRN PRN Reason: Pain, Moderate (4-6) Stop: 01/11/19 13:22 Nicotine (Habitrol) 7 mg TD QDAY [facility] Nifedipine (Procardia Xl) 60 mg PO Q12HR [facility] Last Admin: 01/11/19 09:05 Dose: 60 mg Documented by: Ondansetron HCl (Zofran) 4 mg IV Q8H PRN PRN Reason: Nausea And Vomiting Sodium Chloride (Sodium Chloride Flush Syringe 10 Ml) 10 ml IV BID [facility] Last Admin: 01/11/19 09:06 Dose: 10 ml Documented by: Sodium Chloride (Sodium Chloride Flush Syringe 10 Ml) 10 ml IV PRN PRN PRN Reason: LINE FLUSH Sodium Chloride (Sodium Chloride Flush Syringe 10 Ml) 10 ml IV PRN PRN PRN Reason: LINE FLUSH Physical Examination Vital Signs Temp Pulse Resp BP Pulse Ox 98.3 F 102 H 18 221/102 99 01/10/19 08:24 01/10/19 08:24 01/10/19 08:24 01/10/19 08:24 01/10/19 08:24 General appearance: no acute distress HEENT: Positive: PERRL Neck: Positive: trachea midline Cardiac: Positive: Reg Rate and Rhythm Lungs: Positive: Decreased Breath Sounds, Wheezes Extremities: Absent: edema Results 01/10/19 15:39 01/10/19 15:39 CBC 01/10/19 Range/Units 15:39 WBC 7.0 (4.5-11.0) K/mm3 RBC 4.08 (3.65-5.03) M/mm3 Hgb 12.4 (10.1-14.3) gm/dl Hct 37.7 (30.3-42.9) % Plt Count 191 (140-440) K/mm3 Lymph # 2.0 (1.2-5.4) K/mm3 [place] # 0.3 (0.0-0.8) K/mm3 Eos # 0.1 (0.0-0.4) K/mm3 Baso # 0.0 (0.0-0.1) K/mm3 Comprehensive Metabolic Panel 01/10/19 Range/Units 15:39 Sodium 141 (137-145) mmol/L Potassium 3.4 L (3.6-5.0) mmol/L Chloride 101.1 (98-107) mmol/L Carbon Dioxide 29 (22-30) mmol/L BUN 9 (7-17) mg/dL Creatinine 0.7 (0.7-1.2) mg/dL Glucose 186 H (65-100) mg/dL Calcium 8.2 L (8.4-10.2) mg/dL Assessment and Plan Acute bronchitis Musculoskeletal Chest pain Hypertension Diabetes Noncompliance with medications We will obtain an echocardiogram for LVEF assessment.
[2019-01-11] MEDS: HABITROL TD SCH (13:00)
[2019-01-11] MEDS: COZAAR PO SCH (15:16)
--- NOTE | 2019-01-11 15:51 | Consultation ---
History of Present Illness Consult date: 01/11/19 Requesting physician: ANNE ADDISON Reason for consult: dyspnea, cough History of present illness: 48 y/o female smoker, admitted with shortness of breath and cough for 1 week. No sick contacts. Has visited the ED several times for similar situations. First time being admitted. Currently on room air. Still with cough that is sometimes worse with nebulizer treatments. Feels better overall. Remainder of the review is negative. Past History Past Surgical History: No surgical history Social history: smoking Medications and Allergies Allergies Allergy/AdvReac Type Severity Reaction Status Date / Time No Known Allergies Allergy Verified 07/20/15 00:26 Home Medications Medication Instructions Recorded Confirmed Last Taken Type No Known Home Medications [No 01/10/19 01/10/19 Unknown History Reported Home Medications] Active Meds: Active Medications Acetaminophen (Tylenol) 650 mg PO Q4H PRN PRN Reason: Pain MILD(1-3)/Fever >100.5/LOZANO Budesonide (Pulmicort) 0.5 mg IH Q12HRT [facility] Last Admin: 01/11/19 08:12 Dose: 0.5 mg Documented by: Chlorthalidone (Thalitone) 25 mg PO QDAY [facility] Dextrose (D50w (25gm) Syringe) 50 ml IV PRN PRN PRN Reason: Hypoglycemia Enoxaparin Sodium (Lovenox) 40 mg SUB-Q QDAY@2200 [facility] Last Admin: 01/10/19 22:53 Dose: 40 mg Documented by: Hydralazine HCl (Apresoline) 10 mg IV Q4HR PRN PRN Reason: BP >160/100 Insulin Human Lispro (Humalog) 0 unit SUB-Q [facility]; Protocol Last Admin: 01/11/19 12:59 Dose: 3 unit Documented by: Ipratropium [place] (Atrovent) 0.5 mg IH Q6HRT [facility] Losartan Potassium (Cozaar) 50 mg PO QDAY [facility] Last Admin: 01/11/19 15:16 Dose: 50 mg Documented by: Methylprednisolone Sodium Succinate (Solu-Medrol) 40 mg IV Q12HR [facility] Last Admin: 01/11/19 09:03 Dose: 40 mg Documented by: Nicotine (Habitrol) 7 mg TD QDAY [facility] Last Admin: 01/11/19 13:00 Dose: 7 mg Documented by: Nifedipine (Procardia Xl) 60 mg PO Q12HR [facility] Last Admin: 01/11/19 09:05 Dose: 60 mg Documented by: Ondansetron HCl (Zofran) 4 mg IV Q8H PRN PRN Reason: Nausea And Vomiting Sodium Chloride (Sodium Chloride Flush Syringe 10 Ml) 10 ml IV BID [facility] Last Admin: 01/11/19 09:06 Dose: 10 ml Documented by: Sodium Chloride (Sodium Chloride Flush Syringe 10 Ml) 10 ml IV PRN PRN PRN Reason: LINE FLUSH Review of Systems All systems: negative Physical Examination Vital signs: Vital Signs Temp Pulse Resp BP Pulse Ox 98.3 F 102 H 18 221/102 99 01/10/19 08:24 01/10/19 08:24 01/10/19 08:24 01/10/19 08:24 01/10/19 08:24 General appearance: no acute distress, alert Eyes: non-icteric ENT: oropharynx moist Neck: supple, no lymphadenopathy Effort: normal Ascultation: Bilateral: wheezes Percussion: Bilateral: not dull Tactile fremitus: Bilateral: normal Cardiovascular: regular rate and rhythm Gastrointestinal: normoactive bowel sounds, soft, non-tender, non-distended Integumentary: normal Extremities: no cyanosis, no edema, pink and warm, pulses normal Results - Laboratory Findings CBC and BMP: 01/10/19 15:39 01/11/19 11:10 PT/INR, D-dimer D-Dimer < 135.00 ng/mlDDU (0-234) 01/10/19 08:47 Abnormal lab findings: Abnormal Labs 01/10/19 01/10/19 01/10/19 08:45 08:47 15:39 [place] % (Auto) 7.9 H Potassium 3.4 L Creatinine 0.6 L Glucose 153 H 186 H POC Glucose Hemoglobin A1c Calcium 8.2 L 8.2 L Urine pH 01/10/19 01/11/19 01/11/19 22:07 02:00 05:33 [place] % (Auto) Potassium Creatinine Glucose POC Glucose 286 H Hemoglobin A1c 6.7 H Calcium Urine pH 8.0 H 01/11/19 01/11/19 08:03 12:06 [place] % (Auto) Potassium Creatinine Glucose POC Glucose 237 H 227 H Hemoglobin A1c Calcium Urine pH - Diagnostic Findings Chest x-ray: image reviewed Assessment and Plan 48 y/o female smoker with likely acute bronchitis. 1. Stop smoking 2. Would switch to Prednisone 60 daily and taper as follows. 60x3, days, 40x3 dys, 20x3 days, then 10x3 days then stop 3. Suggest a PRN rescue in haler at discharge 4. Can follow up with her primary or us when she is able. Thanks for the consult, call if questions.
[2019-01-11] MEDS: THALITONE PO SCH (17:51)
[2019-01-11] MEDS: ATROVENT IH SCH (20:33)
[2019-01-11] MEDS: LOVENOX SUB-Q SCH (21:50)
[2019-01-12] MEDS: ATROVENT IH SCH ×3 (02:49→13:43)
[2019-01-12] MEDS: PULMICORT IH SCH (08:05)
[2019-01-12] MEDS: SOLU-Medrol IV SCH (09:43)
[2019-01-12] MEDS: THALITONE PO SCH (09:43)
[2019-01-12] MEDS: COZAAR PO SCH (09:43)
[2019-01-12] MEDS: HABITROL TD SCH (09:43)
[2019-01-12] MEDS: PROCARDIA XL PO SCH (09:43)
[2019-01-12] MEDS: HumaLOG SUB-Q SCH ×2 (09:44→13:24)
[2019-01-12] MEDS: SODIUM CHLORIDE FLUSH SYRINGE 10 ML IV SCH (09:49)
--- NOTE | 2019-01-12 11:58 | Progress Note ---
Assessment and Plan Acute bronchitis Musculoskeletal Chest pain Hypertension Diabetes Noncompliance with medications Echocardiogram reveals a hyperdynamic LV systolic function, ejection fraction 65-70%. Recommend: Continue optimal hypertensive therapy. Otherwise, conservative cardiac management. Subjective Date of service: 01/12/19 Interval history: Patient reports less coughs and improvement with her breathing. Objective Vital Signs Temp Pulse Pulse Pulse Resp Resp BP 01/12/19 10:00 100 H 01/12/19 09:00 100 H 22 01/12/19 08:38 97.9 F 18 146/71 01/12/19 08:17 96 H 18 01/12/19 08:05 94 H 18 01/12/19 04:16 98.2 F 88 20 149/74 01/12/19 02:00 100 H 01/12/19 01:15 98.5 F 100 H 20 162/85 01/11/19 21:00 118 H 22 01/11/19 20:36 116 H 18 01/11/19 20:26 120 H 20 01/11/19 20:07 98.8 F 121 H 20 157/87 01/11/19 17:21 120 H 149/76 01/11/19 15:19 128/62 01/11/19 15:16 119 H 128/62 01/11/19 13:40 113 H 20 01/11/19 13:30 114 H 20 01/11/19 12:01 98.7 F 114 H 18 162/79 Pulse Ox 01/12/19 10:00 01/12/19 09:00 98 01/12/19 08:38 01/12/19 08:17 01/12/19 08:05 01/12/19 04:16 95 01/12/19 02:00 01/12/19 01:15 96 01/11/19 21:00 99 01/11/19 20:36 01/11/19 20:26 01/11/19 20:07 99 01/11/19 17:21 99 01/11/19 15:19 01/11/19 15:16 01/11/19 13:40 01/11/19 13:30 01/11/19 12:01 98 - Physical Examination General: No Apparent Distress HEENT: Positive: PERRL Neck: Positive: trachea midline Cardiac: Positive: Reg Rate and Rhythm Lungs: Positive: Decreased Breath Sounds Neuro: Positive: Grossly Intact Extremities: Absent: edema - Labs and Meds Comprehensive Metabolic Panel 01/11/19 Range/Units 11:10 Potassium 3.6 (3.6-5.0) mmol/L
--- NOTE | 2019-01-12 14:11 | Discharge Summary ---
Providers - Providers Date of Admission: 01/10/19 12:49 Attending physician: ANNE ADDISON MD 01/10/19 Consult to Cardiac Rehabilitation [CONS] Routine Reason For Exam: Phase I 01/10/19 13:23 Consult to Physician [CONS] Routine Comment: Consulting Provider: JUSTINE CAMPUZANO Physician Instructions: Reason For Exam: chest pain [facility] Hospital[facility] Condition: Fair Hospital course: 48-year-old woman with history of tobacco abuse, ongoing every day smoker, history of bronchitis in the past. Presents for shortness of breath and wheezing and cough. She was diagnosed with acute bronchitis, she was advised to quit smoking. She was treated with nebulizers and steroids. She is being sent home on a steroid taper and she was also given inhalers. She was seen by pulmonology while in house. She was found to have hypertensive urgency, therefore she'll set up an appropriate blood pressure medications. -She had chest pain related to have cough, she was seen by cardiology and the chest pain was deemed noncardiac in nature. Diagnoses Acute Bronchitis Chest Pain Hypertension, with htn urgency Prediabetes. A1c 6.7 Nicotine dependence abuse Disposition: DC-01 TO HOME OR SELFCARE Time spent for discharge: 33 mins Core Measure Documentation - Palliative Care Palliative Care/ Comfort Measures: Not Applicable - Core Measures Any of the following diagnoses?: none Exam - Constitutional Vitals: Temp Pulse Resp BP Pulse Ox 97.9 F 100 H 22 146/71 98 01/12/19 08:38 01/12/19 10:00 01/12/19 09:00 01/12/19 08:38 01/12/19 09:00 General appearance: Present: no acute distress, well-nourished - EENT Eyes: Present: PERRL ENT: hearing intact, clear oral mucosa - Neck Neck: Present: supple, normal ROM - Respiratory Respiratory effort: normal Respiratory: bilateral: CTA - Cardiovascular Heart Sounds: Present: S1 & S2. Absent: rub, click - Extremities Extremities: pulses symmetrical, No edema Peripheral Pulses: within normal limits - Abdominal General gastrointestinal: Present: soft, non-tender, non-distended, normal bowel sounds Female genitourinary: Present: normal - Integumentary Integumentary: Present: clear, warm, dry - Musculoskeletal Musculoskeletal: gait normal, strength equal bilaterally - Psychiatric Psychiatric: appropriate mood/affect, intact judgment & insight - Neurologic Neurologic: CNII-XII intact, moves all extremities Plan Follow up with: SONALI STANFORD MD [Primary Care Provider] - 3-5 Days Forms: Work/School Release Form Prescriptions: Fluticasone/Salmeterol [Advair 250-50 Diskus] 1 each IH BID #1 blst.w.dev predniSONE [Deltasone] 10 mg PO QDAY 12 Days tab Nicotine [Habitrol] 7 mg TD QDAY #30 patch amLODIPine [Norvasc] 10 mg PO DAILY #30 tab ALBUTEROL Inhaler(NF) [VENTOLIN Inhaler(NF)] 2 puff IH Q4H PRN #1 inha PRN Reason: Shortness Of Breath Lisinopril [Zestril TAB] 40 mg PO QDAY #30 tablet
[2019-01-12 16:12] VITALS: BP 154/95
== END 2019-01-12 17:09 | disposition home or self-care (01) ==
LOC: ED 08:20 → 4A 12:49
PROVIDERS: ADMIT Internal Medicine; ATTEND Internal Medicine
DX: J20.9 Acute bronchitis, unspecified (principal); R07.89 Other chest pain; I16.0 Hypertensive urgency; E11.9 Type 2 diabetes mellitus without complications; F17.210 Nicotine dependence, cigarettes, uncomplicated; Z79.899 Other long term (current) drug therapy
CPT/HCPCS: 36415; 71046; 80048; 81001; 82962; 83036; 83880; 84132; 84484; 85025; 85379; 93005; 93010; 93306; 94640; 96372; 96374; 96375; 96376; 99284; 99406; G0378; J1650; J2920; J1815; J7030

== ENCOUNTER 2019-08-08 15:25 | Emergency (ER) | payer SELFPAY ==
--- NOTE | 2019-08-08 15:55 | Event Note ---
ED Screening Note Date of service: 08/08/19 Time: 15:54 ED Screening Note: 48 y o female with PMH of HTN uncontrolled with meds, takes meds sometimes was at obgyn office today and was told to go to ER for BP 247/112 This initial assessment/diagnostic orders/clinical plan/treatment(s) is/are luna bject to change based on patients health status, clinical progression and re- assessment by fellow clinical providers in the ED. Further treatment and workup at subsequent clinical providers discretion. Patient/guardian urged not to elope from the ED as their condition may be serious if not clinically assessed and managed. Initial orders include:
--- NOTE | 2019-08-08 16:07 | Emergency Department Report ---
Chief Complaint: High BP Stated Complaint: HBP Time Seen by Provider: 08/08/19 16:03 - HPI History of Present Illness: 48 y o female with PMH of HTN controlled with medication but sometimes forget to take it who was at obgyn office today and was told to go to ER for BP 247/112. pt states she took a pressure medication this morning, she presents here with no cc of chest pain, blurred vision, sob, abd pain. Patient denies all other symptoms. - ROS Review of Systems: As noted in HPI - Exam Vital Signs: Vital Signs 08/08/19 15:54 Temperature 98.2 F Pulse Rate 87 Respiratory 18 Rate O2 Sat by Pulse 97 Oximetry Physical Exam: GENERAL: Alert and oriented x3, no apparent distress, Normal Gait, atraumatic. HEAD: Head is normocephalic and a-traumatic. LUNGS: Symetrical with respiration, No wheezing, no rales or crackles, CTAB. HEART: S1, S2 present, regular rate and rhythm without murmur, NEUROLOGIC: The patient is cooperative with no focal neurologic deficits. SKIN: Warm and dry, No lesions, No ulceration or induration present. MSE screening note: Focused history and physical exam performed. Due to findings the following was ordered: ED Medical Decision Making - Lab Data Vital Signs 08/08/19 08/08/19 08/08/19 15:54 17:17 17:19 Temperature 98.2 F Pulse Rate 87 Respiratory 18 18 Rate Blood Pressure 167/104 [Left] O2 Sat by Pulse 97 97 Oximetry - Medical Decision Making 48-year-old female presented with elevated blood pressure. Patient has a history of hypertension and takes medication for it. Upon arrival to the ED patient's blood pressure dropped to 196/97. Patient is not having any symptoms in the ED. She sitting comfortably in triage. Patient also states that she has an appointment with her primary care physician Dr. Vladimir Carbajal in the morning at 10:30 AM. I discussed the patient to make sure she follows up with her primary care doctor. I discussed with the patient take her nighttime blood pressure medication. I discussed with area of any worsening symptoms or new onset of symptoms to return to the ED immediately. ED Disposition for MSE Clinical Impression: Elevated blood pressure reading, Essential hypertension Disposition: DC-01 TO HOME OR SELFCARE Is pt being admited?: No Does the pt Need Aspirin: No Condition: Stable Instructions: Hypertension (ED) Additional Instructions: keep your appointment with your pcp tomorrow Forms: Work/School Release Form(ED) Time of Disposition: 18:41
[2019-08-08 17:18] VITALS: BP 167/104
== END 2019-08-08 18:55 | disposition home or self-care (01) ==
LOC: ED 15:25
DX: I10 Essential (primary) hypertension (principal)
CPT/HCPCS: 99282

== ENCOUNTER 2020-09-15 09:18 | Emergency (ER) | payer SELFPAY ==
[2020-09-15] MEDS ORDERED: amLODIPine 5 MG TAB ONE (09:36)
[2020-09-15] MEDS ORDERED: amLODIPine 5 MG TAB PO ONE (09:40)
--- NOTE | 2020-09-15 11:42 | Emergency Department Report ---
ED General Adult HPI - General Chief complaint: Skin Rash Stated complaint: SWOLLEN RT EYE/HEAD AND NECK PAIN Time Seen by Provider: 09/15/20 11:24 Source: patient Mode of arrival: Ambulatory Limitations: No Limitations - History of Present Illness Initial comments: Patient is 49 years old female with history of hypertension, noncompliant with her medication. Patient stated that she does not remember the last time she took her blood pressure medicine because of insurance issue. Patient presented to the ER complaining of right facial rash mainly to the periorbital area and forehead. Patient stated that rash started 2 days ago as of vesicles and now ERUPTED into a painful rash. She also noticed that the rash did not cross midline. Patient stated that she had history of chickenpox before but never had shingles before. Patient denied any fever or chills. She is also complaining of swelling to the upper eyelid however there is no visual changes. Patient denied any headache, nausea or vomiting. -: days(s) (2) - Related Data Previous Rx's Medication Instructions Recorded Last Taken Type ALBUTEROL Inhaler(NF) [VENTOLIN 2 puff IH Q4H PRN #1 inha 01/12/19 Unknown Rx Inhaler(NF)] Fluticasone/Salmeterol [Advair 1 each IH BID #1 blst.w.dev 01/12/19 Unknown Rx 250-50 Diskus] Nicotine [Habitrol] 7 mg TD QDAY #30 patch 01/12/19 Unknown Rx amLODIPine 10 mg PO DAILY #30 tab 01/12/19 Unknown Rx lisinopriL [Zestril TAB] 40 mg PO QDAY #30 tablet 01/12/19 Unknown Rx predniSONE 10 mg PO QDAY 12 Days tab 01/12/19 Unknown Rx Acyclovir [Zovirax Tab] 400 mg PO Q8H #21 tab 09/15/20 Unknown Rx amLODIPine 10 mg PO DAILY #60 tab 09/15/20 Unknown Rx cephALEXin [Keflex] 500 mg PO Q8HR #28 cap 09/15/20 Unknown Rx Allergies Allergy/AdvReac Type Severity Reaction Status Date / Time No Known Allergies Allergy Verified 08/08/19 15:28 ED Review of Systems ROS: Stated complaint: SWOLLEN RT EYE/HEAD AND NECK PAIN Other details as noted in HPI Comment: All other systems reviewed and negative Constitutional: denies: chills, fever Eyes: eye pain, eye discharge. denies: vision change Cardiovascular: denies: chest pain Gastrointestinal: denies: abdominal pain, nausea, vomiting Musculoskeletal: denies: back pain ED Past Medical Hx - Past Medical History Previous Medical History?: Yes Hx Hypertension: Yes Hx Diabetes: Yes Hx Asthma: Yes Hx HIV: No - Surgical History Past Surgical History?: Yes Additional Surgical History: breast reduction - Social History Smoking Status: Current Every Day Smoker Substance Use Type: Alcohol - Medications Home Medications: Home Medications Medication Instructions Recorded Confirmed Last Taken Type ALBUTEROL Inhaler(NF) [VENTOLIN 2 puff IH Q4H PRN #1 inha 01/12/19 Unknown Rx Inhaler(NF)] Fluticasone/Salmeterol [Advair 1 each IH BID #1 blst.w.dev 01/12/19 Unknown Rx 250-50 Diskus] Nicotine [Habitrol] 7 mg TD QDAY #30 patch 01/12/19 Unknown Rx amLODIPine 10 mg PO DAILY #30 tab 01/12/19 Unknown Rx lisinopriL [Zestril TAB] 40 mg PO QDAY #30 tablet 01/12/19 Unknown Rx predniSONE 10 mg PO QDAY 12 Days tab 01/12/19 Unknown Rx Acyclovir [Zovirax Tab] 400 mg PO Q8H #21 tab 09/15/20 Unknown Rx amLODIPine 10 mg PO DAILY #60 tab 09/15/20 Unknown Rx cephALEXin [Keflex] 500 mg PO Q8HR #28 cap 09/15/20 Unknown Rx ED Physical Exam - General Limitations: No Limitations General appearance: alert, in no apparent distress - Eye Eye exam: Present: periorbital swelling, other (Vesicular rash standing from the right forehead all the way down to the nose and periorbital area consistent with herpes zoster.) - ENT ENT exam: Present: normal exam, mucous membranes moist - Neck Neck exam: Present: normal inspection. Absent: tenderness - Respiratory Respiratory exam: Present: normal lung sounds bilaterally - Cardiovascular Cardiovascular Exam: Present: regular rate, normal rhythm, normal heart sounds - GI/Abdominal GI/Abdominal exam: Absent: soft, distended, tenderness, guarding - Extremities Exam Extremities exam: Present: normal inspection, full ROM - Neurological Exam Neurological exam: Present: alert, oriented X3, CN II-XII intact, normal gait. Absent: motor sensory deficit - Psychiatric Psychiatric exam: Present: normal mood - Skin Skin exam: Present: warm, rash, vesicles ED Course Vital Signs 09/15/20 09/15/20 09:20 09:43 Temperature 99 F Pulse Rate 86 86 Respiratory 20 Rate Blood Pressure 219/110 219/110 O2 Sat by Pulse 98 Oximetry ED Medical Decision Making - Lab Data Result diagrams: 09/15/20 12:02 09/15/20 12:02 - Radiology Data Radiology results: report reviewed - Medical Decision Making Patient is 49 years old female with history of hypertension, noncompliant with her medication. Patient stated that she does not remember the last time she took her blood pressure medicine because of insurance issue. Patient presented to the ER complaining of right facial rash mainly to the periorbital area and forehead. Patient stated that rash started 2 days ago as of vesicles and now ERUPTED into a painful rash. She also noticed that the rash did not cross midline. Patient stated that she had history of chickenpox before but never had shingles before. Patient denied any fever or chills. She is also complaining of swelling to the upper eyelid however there is no visual changes. Patient denied any headache, nausea or vomiting. Labs reviewed and is unremarkable. CT right orbit is unremarkable except for soft tissue swelling. Patient given prescription for acyclovir, amlodipine and Keflex and advised to follow-up with her primary doctor in the next 2 to 3 days and to return to the ER if she develop any new symptoms. Critical care attestation.: If time is entered above; I have spent that time in minutes in the direct care of this critically ill patient, excluding procedure time. ED Disposition Clinical Impression: Malignant hypertension, Herpes zoster virus infection of face and ear nerves Disposition: DC-01 TO HOME OR SELFCARE Is pt being admited?: No Condition: Stable Instructions: Shingles, Hypertension, Adult, [id number], Hypertension (ED) Prescriptions: amLODIPine 10 mg PO DAILY #60 tab cephALEXin [Keflex] 500 mg PO Q8HR #28 cap Acyclovir [Zovirax Tab] 400 mg PO Q8H #21 tab Referrals: PRIMARY CARE, [Referring] - 3-5 Days
[2020-09-15 13:05] LABS: Basophils % (Auto) 0.5 % (0.0-1.8); Eosinophils # (Auto) 0.2 K/mm3 (0.0-0.4); Eosinophils % (Auto) 2.7 % (0.0-4.3); Hematocrit 40.7 % (30.3-42.9); Hemoglobin 13.5 gm/dl (10.1-14.3); Lymphocytes # (Auto) 1.5 K/mm3 (1.2-5.4); Lymphocytes % (Auto) 23.1 % (13.4-35.0); Mean Corpuscular HGB Conc 33 % (30-34); Mean Corpuscular Volume 95 fl (79-97); Monocytes # (Auto) 0.5 K/mm3 (0.0-0.8); Monocytes % (Auto) 8.2 % (0.0-7.3); Platelet Count 223 K/mm3 (140-440); Red Cell Distribution Width 13.7 % (13.2-15.2)
--- NOTE | 2020-09-15 13:10 | Cat Scan Report ---
CT orbit/ear/fossa wo con INDICATION / CLINICAL INFORMATION: 49 years Female; MAIN. TECHNIQUE: Thin cut axial images obtained. Sagittal and coronal reconstructions performed. All CT scans at this location are performed using CT dose reduction for ALARA by means of automated exposure control. COMPARISON: None available. FINDINGS: Soft tissue swelling seen in the right periorbital region. No signs of underlying bony abnormality. T hese findings are strictly preseptal. No evidence of post septal or retro-orbital abnormality. The right lacrimal gland may be slightly, asymmetrically swollen when compared with the left - dacryo adenitis might be a consideration. Findings might also be reactive from the adjacent subcutaneous pro cess. The globes are normal in appearance bilaterally, as are the extraocular muscles and optic nerves. Visualized paranasal sinuses and mastoid air cells are clear. Mildly prominent right level 1 and level 2 lymph nodes are seen, presumably reactive. Lerna and lingual tonsillar tissue also mildly prominent, presumably reactive. IMPRESSION: 1. Nonspecific soft tissue swelling identified, as described above. Signer Name: Lincoln Barajas MD, III Signed: 09/15/2020 1:06 PM Workstation Name: [id number]
[2020-09-15 13:26] LABS: Blood Urea Nitrogen 12 mg/dL (7-17); Calcium 9.2 mg/dL (8.4-10.2); Hemolysis Index 20
[2020-09-15 13:27] LABS: BUN/Creatinine Ratio 17
[2020-09-15 15:05] VITALS: BP 192/91
== END 2020-09-15 15:07 | disposition home or self-care (01) ==
LOC: ED 09:18
DX: B02.29 Other postherpetic nervous system involvement (principal); I10 Essential (primary) hypertension; F17.200 Nicotine dependence, unspecified, uncomplicated; E11.9 Type 2 diabetes mellitus without complications; J45.909 Unspecified asthma, uncomplicated; Z79.899 Other long term (current) drug therapy; Z98.890 Other specified postprocedural states
CPT/HCPCS: 36415; 70480; 80048; 85025